=== PATIENT | male | born 1990 | race Caucasian/White ===

== ENCOUNTER 2021-04-10 03:00 | Emergency (ER) | payer BC ==
[2021-04-10 03:44] LABS: RED BLOOD COUNT 5.1 M/UL (4.20-5.50); WHITE BLOOD COUNT 11.4 K/UL (4.5-11.0)
[2021-04-10 04:22] LABS: BUN/CREATININE RATIO 12 (0-10)
[2021-04-10] MEDS ORDERED: BENTYL 10MG CAP10 MG PO (06:56)
[2021-04-10] MEDS ORDERED: ZOFRAN ODT 4 MG4 MG SL (06:56)
[2021-04-10] MEDS ORDERED: MIRALAX 119 GR119 GM PO (06:56)
== END 2021-04-10 07:45 | disposition home or self-care (01) ==
LOC: ER1 03:00
PROVIDERS: Physician Assistant
DX: K56.7 Ileus, unspecified (principal); M48.56XA Collapsed vertebra, not elsewhere classified, lumbar region, initial encounter for fracture; Z88.0 Allergy status to penicillin
CPT/HCPCS: 80053; 83605; 83690; 85025; 96372; 96374; 96375; 96376; 99284; J0500; J1170; J2405; J7030; J7040; Q9967

== ENCOUNTER → 2021-04-15 | Outpatient (CLI) | payer BC ==
[~2021-04-15] MED LIST: BENTYL 10MG CAP10 MG PO; MIRALAX 119 GR119 GM PO; ZOFRAN ODT 4 MG4 MG SL
== END ==
LOC: KOH-I 09:17
DX: S32.010A Wedge compression fracture of first lumbar vertebra, initial encounter for closed fracture (principal); M51.37 Other intervertebral disc degeneration, lumbosacral region
CPT/HCPCS: 72148

== ENCOUNTER → 2021-06-28 | Outpatient (CLI) | payer MEDICARE | LOC: EXRD 13:58 | DX: S32.018A Other fracture of first lumbar vertebra, initial encounter for closed fracture (principal) | CPT/HCPCS: 77080 ==